=== PATIENT | female | born 1985 | race Caucasian/White ===

== ENCOUNTER 2021-10-31 02:42 | Emergency (ER) | payer SELFPAY ==
[2021-10-31] VITALS (20 sets, daily range): BP systolic 95–122; BP diastolic 72–96; PULSE 85–112; RESP 15–23; TEMP 36.2; O2SAT 95–100
--- NOTE | ~2021-10-31 | CT_ITS ---
EXAMINATION: CT brain wo con DATE: 10/31/2021 03:27 INDICATION: Altered mental status. Slurred speech. TECHNIQUE: Computed tomography (CT) of the head was performed without intravenous contrast. The mA wa s adjusted according to patient size. Iterative reconstruction technique was employed. The dose-lengt h product was 605.33 mGy-cm. COMPARISON: Head CT 05/25/2018 FINDINGS: There is no intracranial hemorrhage, acute infarction, or abnormal intracranial mass lesion . The ventricles are normal in size. The orbits are normal. There is mild mucosal thickening in the e thmoid sinuses. The mastoid air cells are normal. IMPRESSION: 1. Normal brain. Reviewed, dictated and finalized at location A. IMPRESSION: 1. Normal brain.
--- NOTE | ~2021-10-31 | XR_ITS ---
EXAMINATION: XR chest 2V DATE: 10/31/2021 06:02 INDICATION: Altered mental status. TECHNIQUE: Frontal and lateral views of the chest were obtained. COMPARISON: None. FINDINGS: The chest demonstrates clear lungs without pneumonia, pleural effusion, or pneumothorax. Th e heart size is normal. IMPRESSION: 1. No acute cardiopulmonary disease. Reviewed, dictated and finalized at location A.
--- NOTE | 2021-10-31 02:51 | ECG_ITS ---
Measurements Intervals [place] Rate: 100 P: 3 NM: 168 QRS: 52 QRSD: 98 T: 20 QT: 335 QTc: 433 Interpretive Statements SINUS TACHYCARDIA EARLY REPOLARAIZATION ABNORMAL RHYTHM ECG NO PREVIOUS ECG AVAILABLE FOR COMPARISON Electronically Signed On 10-31-2021 15:30:32 CDT by Jared Lyles MD
[2021-10-31 03:03] LABS: Glucose Point of Care 92 mg/dl (65-105)
[2021-10-31 03:13] LABS: Basophils Absolute Auto 0.1 K/mm3 (0.0-0.1); Basophils Percent Auto 0.9 % (0.2-1.2); Eosinophils Absolute Auto 0.1 K/mm3 (0-0.3); Eosinophils Percent Auto 1.7 % (0-4.4); Hematocrit 42.9 % (37.0-47.0); Hemoglobin 12.4 g/dL (12.0-15.0); Immature Granulocyte Absolute 0.01 K/mm3 (0.00-0.031); Immature Granulocyte Percent A 0.2 % (0-0.5); Lymphocytes Absolute Auto 1.57 K/mm3 (0.9-3.2); Lymphocytes Percent Auto 29.1 % (18.3-44.2); Mean Corpuscular HGB Conc 28.9 g/dl (32-36); Mean Corpuscular Volume 100.5 fl (80-100); Monocytes Absolute Auto 0.5 K/mm3 (0.1-0.6); Monocytes Percent Auto 9.3 % (2.6-8.5); Neutrophils Absolute Auto 3.2 K/mm3 (1.3-6.7); Neutrophils Percent Auto 58.8 % (45.5-73.1); Platelet Count Result 318 k/mm3 (150-375); Red Blood Count 4.27 M/mm3 (4.2-5.4); Red Cell Distribution Width 14.7 % (11.5-14.5); White Blood Count 5.4 K/mm3 (4.5-10.0)
--- NOTE | 2021-10-31 03:21 | PC.NURSE ---
Patient is a tough stick, multiple RNs attempted, unsuccessful. electronic console display operator notified and ERP notified.
[2021-10-31 03:26] LABS: Ethanol 49 mg/dL (<10)
[2021-10-31] MEDS: THIAMINE HCL 200 MG/2 ML VIAL 100 MG IV PUSH (03:40)
[2021-10-31] MEDS: SODIUM CHLORIDE 0.9% IV 1,000 ML 999 ML IV CONT (03:40)
--- NOTE | 2021-10-31 03:40 | ED.AMS ---
HPI - Altered Mental Status General Chief Complaint: Altered Mental Status Stated Complaint: found unresponsive on side of road Time Seen by Provider: 10/31/21 02:46 Source: EMS History of Present Illness HPI narrative: Patient brought in by EMS. Patient was found on the side of the road by police there was concern for heavy alcohol use as patient reports she did drink tonight. It is believed the patient was at her significant other's house and was kicked out of the house. Patient mumbles in response to questions but she states she has been drinking she denies any complaints such as chest pain belly pain or headache. She is unable to clearly relate the events of this evening Related Data Home Medications Medication Instructions Recorded Confirmed escitalopram oxalate 10 mg tablet 10 mg PO DAILY 10/31/21 10/31/21 ferrous sulfate 325 mg (65 mg 1 tablet PO DAILY 10/31/21 iron) tablet (FeroSul) metoclopramide HCl 10 mg tablet 10 mg PO TID PRN Nausea 10/31/21 Allergies Allergy/AdvReac Type Severity Reaction Status Date / Time No Known Allergies Allergy Verified 10/31/21 02:49 Review of Systems Review of Systems: CONSTITUTIONAL: Denies fever, chills, or sweats. EYES: Denies visual changes, redness, or discharge. ENT: Denies rhinorrhea, congestion, sore throat, or otalgia. CARDIOVASCULAR: Denies chest pain, palpitations, or edema. RESPIRATORY: Denies cough or dyspnea. GASTROINTESTINAL: Denies abdominal pain, nausea, vomiting, or diarrhea. GENITOURINARY: Denies dysuria or hematuria. SKIN: Denies rash or itching. MUSCULOSKELETAL: Denies back pain, joint pain, or myalgia. NEUROLOGIC: Denies headache, numbness, dizziness, or weakness. All systems reviewed & are unremarkable except as noted in HPI and below ROS unobtainable: Yes unobtainable due to mental status (Review of his symptoms may be limited due to mental status) Exam Narrative: GENERAL: Well-appearing, well-nourished, and in no acute distress. HEAD: Normocephalic, atraumatic. EYES: PERRLA and EOMI. ENT: Nares clear, no rhinorrhea or epistaxis. Mucous membranes moist. NECK: Supple. No masses. No JVD CHEST: Clear to auscultation. No respiratory distress. No wheezes rales or rhonchi HEART: Regular rate and rhythm. No murmur heard. Normal peripheral pulses. ABDOMEN: Soft, nontender, nondistended, normal active bowel sounds. EXTREMITIES: Normal range of motion. No edema. SKIN: Warm, dry, no rash. NEURO: Patient moves all extremities in response to external stimuli. Patient is somnolent but arousable PSYCH: Normal mood and affect. Course Reevaluation(s) Reevaluation #1: No significant change in patient's mental status she has localizing pain she is able to verbalize and request us to noxious stimuli and she is states she does not remember what happened last night. Attempted contact patient notify as documented in the chart there was no answer unable to leave voicemail. Work-up thus far is clinically unremarkable stat rad was contacted approximately 30 minutes ago to assist with a stat rad of her CT head Date: 10/31/21 Time: 04:41 Reevaluation #2: Patient is awake alert she reports she took her lorazepam 2 pills last night she is unsure how she got here it does not know what happened last night is unable to give any details of how she was found on the side of the road Date: 10/31/21 Time: 07:23 Consultations Consultation #1: Individual Fer Benito called the emergency room. Stated they had 3 or 4 shots together when he was a slight argument and patient stormed off she went down the street and that was the last time he saw her about 30 minutes after that the police knocked on his door trying to figure out as to what happened. He does report patient has a history of seizures now for approximately 3 years and is only aware of 1 seizure episode. He is unsure if she is doing any recreational substances but they did not do any tonight while he was with her. He repo
[2021-10-31 03:44] LABS: Add Urine Microscopic? YES; Appearance Urine Slightly Cloudy (Clear); Bilirubin Urine Negative (Negative); Blood Urine 1+ (Negative); Color Urine Yellow (Yellow); Glucose Urine UA Negative (Negative); Ketones Urine Negative (Negative); Leukocyte Esterase Ur 3+ LEU/UL (Negative); Nitrate Urine Negative (Negative); Protein Urine 1+ mg/dL (Negative); Urobilinogen Urine 0.2 mg/dL (<2.0); pH Urine 6.5 (5.0-9.0)
[2021-10-31 03:48] LABS: Mucus Urine Rare /lpf; Squamous Epithelial Cell Urine Occasional /hpf (Few); WBC Urine >75 /hpf
--- NOTE | 2021-10-31 03:53 | PC.NURSE ---
Phlebotomy here to draw labs. Labs obtained and sent.
[2021-10-31 04:00] LABS: Amphetamine Screen Urine Negative (Negative); Barbiturate Screen Urine Negative (Negative); Benzodiazepines Screen Urine Negative (Negative); Cannabinoid Screen Urine Negative (Negative); Cocaine Screen Urine Negative (Negative); Methadone Screen Urine Negative (Negative); Opiate Screen Urine Negative (Negative); Phencyclidine Screen Urine Negative (Negative)
[2021-10-31 04:06] LABS: Ammonia 15 umol/L (9-30)
[2021-10-31] MEDS: NALOXONE HCL 0.4 MG/ML VIAL IV PUSH ×2 (04:06→04:21)
[2021-10-31 04:12] LABS: Lactic Acid Reflex 1.8 mmol/L (0.7-2.0)
[2021-10-31 04:25] LABS: Alanine Aminotransferase 26 U/L (6-35); Albumin Level 4.3 g/dL (3.5-5.1); Alkaline Phosphatase 64 U/L (38-126); Anion Gap 9 mmol/L (8-16); Aspartate Amino Transferase 26 U/L (14-36); Bilirubin,Total 0.1 mg/dL (0.2-1.3); Blood Urea Nitrogen 8 mg/dL (7-17); Carbon Dioxide 26 mmol/L (22-30); Chloride 107 mmol/L (98-107); Estimated Glomerular Filt Rate > 60; Glucose 95 mg/dL (65-110); Potassium 3.6 mmol/L (3.4-5.0); Sodium 142 mmol/L (137-145)
--- NOTE | 2021-10-31 04:44 | PC.NURSE ---
Patient more arousable with painful stimuli as well as mumbles. Patient does state no when asked if she did any drugs or anything other than drink alcohol. Patient quickly falls back asleep and does not answer when asked what happened tonight.
--- NOTE | 2021-10-31 04:46 | PC.NURSE ---
Attempted to contact patients contact on chart,this nurse and EDP attempted twice, no answer and unable to leave a voicemail.
--- NOTE | 2021-10-31 05:19 | PC.NURSE ---
Fer, patients contact calls back and is speaking with dispensing and measuring optician and ERP.
--- NOTE | 2021-10-31 05:37 | PC.NURSE ---
Patients chart requested from [facility].
--- NOTE | 2021-10-31 05:55 | PC.NURSE ---
Patient taken to xray via stretcher.
[2021-10-31 06:00] LABS: Ethanol < 10 mg/dL (<10)
[2021-10-31] MEDS: flumazeniL 0.5 MG/5 ML VIAL 0.2 MG IV PUSH (06:37)
--- NOTE | 2021-10-31 06:42 | PC.NURSE ---
Patient woke up after administration of flumazenil. Patient is confused. Speaking with this RN and ERP.
--- NOTE | 2021-10-31 11:55 | PM.IMHP ---
H&P: HPI History of Present Illness Date/Time: 10/31/21 11:55 Chief Complaint: Patient brought in by EMS.? Patient was found on the side of the road by police there was concern for heavy alcohol use as patient reports she did drink tonight.? It is believed the patient was at her significant other's house and was kicked out of the house.? Patient mumbles in response to questions but she states she has been drinking she denies any complaints such as chest pain belly pain or headache.? She is unable to clearly relate the events of this evening Review of Systems Review of Systems: 10 point ROS negative except as stated in HPI / Subjective Meds Home Medications and Allergies Home Medications Medication Instructions Recorded Confirmed Type cephalexin 500 mg capsule 500 mg PO Q12H 7 days #14 caps 10/31/21 Rx escitalopram oxalate 10 mg tablet 10 mg PO DAILY 10/31/21 10/31/21 History ferrous sulfate 325 mg (65 mg 1 tablet PO DAILY 10/31/21 History iron) tablet (FeroSul) metoclopramide HCl 10 mg tablet 10 mg PO TID PRN Nausea 10/31/21 History Allergies Allergy/AdvReac Type Severity Reaction Status Date / Time No Known Allergies Allergy Verified 10/31/21 02:49 Vital Signs Vital Signs - 24 hr 10/31/21 02:40 10/31/21 03:07 10/31/21 03:15 Temperature 97.1 F L Pulse Rate 112 H 103 H 106 H Respiratory Rate 20 22 H 23 H Blood Pressure 117/83 Pulse Oximetry 97 Oxygen Delivery Room Air 10/31/21 03:30 10/31/21 03:45 10/31/21 04:00 Temperature Pulse Rate 88 93 93 Respiratory Rate 19 20 18 Blood Pressure Pulse Oximetry 98 96 95 Oxygen Delivery 10/31/21 04:01 10/31/21 04:15 10/31/21 04:30 Temperature Pulse Rate 95 93 100 Respiratory Rate 19 19 21 H Blood Pressure 107/73 Pulse Oximetry 98 96 99 Oxygen Delivery 10/31/21 04:31 10/31/21 04:45 10/31/21 05:00 Temperature Pulse Rate 108 H 85 86 Respiratory Rate 15 17 19 Blood Pressure 122/96 H Pulse Oximetry 100 99 98 Oxygen Delivery 10/31/21 05:01 10/31/21 05:15 10/31/21 05:30 Temperature Pulse Rate 87 91 89 Respiratory Rate 19 19 19 Blood Pressure 101/79 Pulse Oximetry 98 97 97 Oxygen Delivery 10/31/21 05:31 10/31/21 05:45 10/31/21 06:16 Temperature 97.2 F L Pulse Rate 93 88 86 Respiratory Rate 19 18 19 Blood Pressure 95/72 L Pulse Oximetry 97 99 100 Oxygen Delivery 10/31/21 06:34 10/31/21 07:57 Temperature Pulse Rate 88 112 H Respiratory Rate 19 22 H Blood Pressure 118/78 Pulse Oximetry 100 97 Oxygen Delivery H&P: Results Labs Labs: Short CBC 10/31/21 Range/Units 03:08 WBC 5.4 (4.5-10.0) K/mm3 Hgb 12.4 (12.0-15.0) g/dL Hct 42.9 (37.0-47.0) % Plt Count 318 (150-375) k/mm3 BMP 10/31/21 03:52 Sodium 142 Potassium 3.6 Chloride 107 Carbon Dioxide 26 BUN 8 Creatinine 0.40 L Glucose 95 Calcium 9.0 Liver Function 10/31/21 Range/Units 03:52 Total Bilirubin 0.1 L (0.2-1.3) mg/dL AST 26 (14-36) U/L ALT 26 (6-35) U/L Alkaline Phosphatase 64 (38-126) U/L Albumin 4.3 (3.5-5.1) g/dL Urine 10/31/21 Range/Units 03:36 Urine Color Yellow (Yellow) Urine Appearance Slightly cloudy (Clear) Urine pH 6.5 (5.0-9.0) Ur Specific [place] 1.020 (1.001-1.035) Urine Protein 1+ H (Negative) mg/dL Urine Glucose (UA) Negative (Negative) mg/dL Assessment and Plan Assessment and plan (1) Altered mental status: Qualifiers: Altered mental status type: somnolence Qualified Code(s): R40.0 - Somnolence Code(s): R41.82 - Altered mental status, unspecified Status: Acute Assessment and Plan: Secondary UTI, improved (2) UTI (urinary tract infection): Code(s): N39.0 - Urinary tract infection, site not specified Status: Acute Assessment and Plan: IV antibiotics Plan Get PT and OT to see the patient as well
== END 2021-10-31 08:00 | disposition home or self-care (01) ==
PROVIDERS: Emergency Provider Emergency Medicine
DX: N39.0 Urinary tract infection, site not specified (principal); R40.0 Somnolence; T42.4X4A Poisoning by benzodiazepines, undetermined, initial encounter; R00.0 Tachycardia, unspecified
CPT/HCPCS: 36415; 70450; 71046; 80053; 80307; 81001; 81025; 82140; 82948; 83605; 85025; 87077; 87086; 87088; 93005; 96361; 96374; 96375; 99284; J0696; J2310; J3411; J7030